=== PATIENT | male | born 1970 | race African-American/Black ===

== ENCOUNTER 2021-09-27 08:52 | Outpatient (REF) | payer OTHER, SELFPAY ==
[2021-09-27 09:59] LABS: MANUAL DIFF FLAG NO
[2021-09-27 10:01] LABS: Basophils Absolute Auto 0.1 X10*3/uL (0.0-0.2); Basophils Percent Auto 0.6 % (0-2); Eosinophils Absolute Auto 0.2 X10*3/uL (0.0-0.4); Eosinophils Percent Auto 2.6 % (0-4); Hematocrit 38.7 % (42-52); Hemoglobin 12.9 g/dl (14.0-18.0); Imm Gran Abs Auto 0.05 X10*3/uL (0.00-0.03); Imm Gran Pct Auto 0.6 % (0.0-0.4); Lymphocytes Absolute Auto 2.4 X10*3/uL (1.2-4.9); Lymphocytes Percent Auto 26.2 % (20-40); Mean Corpuscular HGB Conc 33.3 g/dl (31.0-36.0); Mean Corpuscular Hemoglobin 29.5 pg (27.0-33.0); Mean Corpuscular Volume 88.4 fL (80-98); Mean Platelet Volume 9.9 fL (9.4-12.4); Monocytes Absolute Auto 0.7 X10*3/uL (0.1-1.2); Monocytes Percent Auto 7.6 % (2-11); Neutrophils Absolute Auto 5.6 X10*3/uL (2.0-8.3); Neutrophils Percent Auto 62.4 % (45-73); Platelet Count 330 X10*3/uL (160-400); Red Blood Count 4.38 X10*6/uL (4.60-5.80); Red Cell Distribution Width 12.4 % (11.0-16.0)
[2021-09-27 10:34] LABS: Alanine Aminotransferase 32 U/L (0-40); Albumin Level 4.4 g/dL (3.5-5.0); Alkaline Phosphatase 60 U/L (39-117); Anion Gap 11 (12-20); Aspartate Amino Transferase 20 U/L (5-37); Bilirubin Total 0.6 mg/dL (0.0-1.0); Blood Urea Nitrogen 13 mg/dL (9-16); Calcium 9.4 mg/dL (8.4-10.2); Carbon Dioxide 28 mmol/L (22-29); Chloride 103 mmol/L (96-108); Cholesterol 210 mg/dL; Estimated Glomerular Filt Rate > 60; Glucose Fasting 108 mg/dL (60-99); HDL Cholesterol 41 mg/dL; LDL Cholesterol Calculated 148 mg/dl; Potassium 4.2 mmol/L (3.3-5.1); Sodium 138 mmol/L (135-145); Total Protein 7.7 g/dL (6.5-8.0); Triglycerides 107 mg/dL
[2021-09-27 10:41] LABS: Appearance Urine CLEAR; Color Urine YELLOW; Glucose Urine UA NEG (NEG); Leukocyte Esterase Urine NEG (NEG); Nitrite Urine NEG (NEG); Urine Blood NEG (NEG); Urine Ketones NEG (NEG); Urine Protein NEG (NEG-TRACE)
[2021-09-27 10:51] LABS: Thyroid Stimulating Hormone 0.38 uIU/mL (0.32-4.0)
== END 2021-09-27 08:53 | disposition home or self-care (01) ==
LOC: HO.10HDL 08:52
PROVIDERS: Visit Provider Internal Medicine
DX: Z00.00 Encounter for general adult medical examination without abnormal findings (principal); Z12.5 Encounter for screening for malignant neoplasm of prostate; R63.5 Abnormal weight gain; R35.1 Nocturia
CPT/HCPCS: 36415; 80053; 80061; 81003; 84153; 84443; 85025

== ENCOUNTER 2021-11-01 07:42 | Day surgery (SDC) | payer SELFPAY ==
[2021-10-24 09:48] VITALS: BMI 50.7
--- NOTE | 2021-10-31 09:57 | P.CONAN_ITS ---
Documented by User: Liza Ortiz NP 10/31/21 09:59 HPI - Anesthesia Eval Consult details Narrative: 51yo M for Upper Endoscopy and Colonoscopy [facility] Past Medical History Medical History (Updated 10/24/21 @ 09:47 by Elizabeth Busby RN) Arthritis Elevated cholesterol Environmental allergies GERD (gastroesophageal reflux disease) HTN (hypertension) Sleep apnea Surgical History Surgical History (Updated 10/24/21 @ 09:47 by Elizabeth Busby RN) Hx of arthroscopic knee surgery Social History Social History Are you a primary director of home care hospice to a significant other at home: No Do you presently have visiting nurse or other home services: No Patient Tobacco Use Status: Never used Tobacco Use of substances other than those prescribed or required for medical reasons: No Have you been hit, kicked, punched, or otherwise hurt by someone within the past year? If so, by whom?: No Are you DNR?: No Advance Directives: No Advance Directives Information Provided: Yes (informational brochure mailed) Advance Directives on File: No Recently lost weight without trying: No Eating poorly because of decreased appetite: No Nutrition Risks: No Nutritional Risk Poor oral hygiene: No Meds Allergies Allergy/AdvReac Type Severity Reaction Status Date / Time No Known Allergies Allergy Verified 10/24/21 09:27 Home Medications Medication Instructions Recorded Confirmed Last Taken Type albuterol sulfate 90 mcg/actuation 1 inh INHALATION Q4H PRN 10/24/21 10/24/21 Unknown History aerosol inhaler cetirizine 10 mg tablet 10 mg PO DAILY 10/24/21 10/24/21 Unknown History losartan 100 1 tab PO DAILY 10/24/21 10/24/21 Unknown History mg-hydrochlorothiazide 25 mg tablet omeprazole 20 mg capsule,delayed 1 cap PO DAILY 10/24/21 10/24/21 Unknown History release Exam Exam Date and Time: October 31, 2021 0957 Height,Weight and Vital Signs: Height 5 ft 7 in Weight 146.964 kg Pertinent Lab Results Pertinent Lab Results: Laboratory Tests 09/27/21 09/27/21 09:00 09:00 WBC 9.0 Hgb 12.9 L Hct 38.7 L Plt Count 330 Sodium 138 Potassium 4.2 Chloride 103 Carbon Dioxide 28 BUN 13 Creatinine 1.22 Assessment and Plan Assessment Anesthesia Assessment: Chart Reviewed Documented by User: Loren Zuniga MD 11/01/21 08:30 [facility] Past Medical History Medical History (Updated 10/24/21 @ 09:47 by Elizabeth Busby RN) Arthritis Elevated cholesterol Environmental allergies GERD (gastroesophageal reflux disease) HTN (hypertension) Sleep apnea Family History Family history of problems with anesthesia: No Surgical History Surgical History (Updated 10/24/21 @ 09:47 by Elizabeth Busby RN) Hx of arthroscopic knee surgery History of Problems with Anesthesia: No Social History Social History Are you a primary director of home care hospice to a significant other at home: No Do you presently have visiting nurse or other home services: No Patient Tobacco Use Status: Never used Tobacco Use of substances other than those prescribed or required for medical reasons: No Have you been hit, kicked, punched, or otherwise hurt by someone within the past year? If so, by whom?: No Are you DNR?: No Advance Directives: No Advance Directives Information Provided: Yes (informational brochure mailed) Advance Directives on File: No Recently lost weight without trying: No Eating poorly because of decreased appetite: No Nutrition Risks: No Nutritional Risk Poor oral hygiene: No Meds Allergies Allergy/AdvReac Type Severity Reaction Status Date / Time No Known Allergies Allergy Verified 10/24/21 09:27 Home Medications Medication Instructions Recorded Confirmed Last Taken Type albuterol sulfate 90 mcg/actuation 1 inh INHALATION Q4H PRN 10/24/21 10/24/21 Unknown History aerosol inhaler cetirizine 10 mg tablet 10 mg PO DAILY 10/24/21 10/24/21 Unknown History losartan 100 1 tab PO DAILY 10/24/21 10/24/21 Unknown History mg-hydrochlorothiazide 25 mg tablet omeprazole 20 mg capsule,delayed 1 cap PO DAILY 10/24/21 10/24/21 Unknown History release Exam Airway Mallampati Class: II TM Dist: >3cm Neck ROM: Full Heart: rrr Lungs: cta Assessment and Plan Assessment Anesthesia Assessment: Anesthesia Plan Discussed and Chart Reviewed Final Anesthetic Review Family History of Problems with Anesthesia: No History of Problems with Anesthesia: No NPO: Yes ASA Class: III Final Preanesthetic Review: No Changes in Pt Med Stat, Meds/Allgs Chart Reviewed and Consent Obtained/Reviewed Patient Risk: Intermediate Procedure Risk: Intermediate Anesthetic Plan Anesthetic Plan: MAC: Disposition: Standard PACU
[2021-11-01 07:57] VITALS: BP 152/80; PULSE 100; RESP 16; TEMP 36.8; O2SAT 96
[2021-11-01] MEDS: Lactated Ringers 1,000 ML 100 ML IVCONT (08:14)
--- NOTE | 2021-11-01 10:18 | P.BOP_ITS ---
Brief Operative Note Date of Service: 11/01/21 Pre-op diagnosis: GERD, Screening Post-op diagnosis: other (Hiatal hernia, Gastric polyp, Colon polyp) Procedure: EGD with biopsies, Colonoscopy to the cecum with biopsy/removal of polyp Surgeon: Faustino Carmen Anesthesia: MAC Was an Supervisor Acoustical Tile [employer] used for this Procedure?: No Estimated blood loss (mL): 2.0 Pathology: other (A. Gastric polyp B. EG Junction at 40cm C. Colon polyp at 30cm) Condition: stable Disposition: PACU
[2021-11-01 10:23] VITALS: BP 115/66; PULSE 111; RESP 12; TEMP 37.1; O2SAT 98
[2021-11-01 10:38] VITALS: BP 120/66; PULSE 108; RESP 17; TEMP 37.1; O2SAT 96
--- NOTE | 2021-11-02 02:58 | OP_ITS ---
SURGEON: Faustino Carmen MD INDICATIONS: The patient presents for evaluation of gastroesophageal reflux, colorectal cancer screening. Full consent has been obtained from him for both procedures, including risks of bleeding and perforation. PREOPERATIVE DIAGNOSIS: Gastroesophageal reflux and colorectal cancer screening. POSTOPERATIVE DIAGNOSIS: PROCEDURE PERFORMED: Esophagogastroduodenoscopy with biopsies, and colonoscopy to cecum with biopsy and removal of polyp. ESTIMATED BLOOD LOSS: COMPLICATIONS: ANESTHESIA: Monitored anesthesia care. ASSISTANTS: SPECIMENS: POSTOPERATIVE DIAGNOSES: Gastroesophageal reflux and colorectal cancer screening, small hiatal hernia, gastric polyp, colon polyp, occasional sigmoid diverticulosis, and small internal hemorrhoids. DESCRIPTION OF PROCEDURE: The patient was placed in the left lateral decubitus position. The Olympus video gastroscope was passed in the posterior oropharynx and upper esophagus under direct vision. The scope was passed slowly into the distal esophagus. The gastroesophageal junction appeared at 40 cm. There was a very minimal irregularity, but no evidence of esophagitis nor any definitive evidence of Jones's mucosa. The scope was advanced to the pylorus. The duodenum was cannulated to the descending portion. The duodenum including the bulb appeared normal without mass or ulceration. Scope was withdrawn back into the stomach. The gastric antrum and body appeared normal with good peristalsis. The scope was retroflexed visualizing the proximal stomach carefully which appeared normal, without any sign of mass or ulceration, other than some hyperplastic appearing polyps. One of these was somewhat larger and was biopsied twice. The scope was straightened and withdrawn back into the esophagus. The esophageal mucosa appeared normal. I did obtain biopsies of the EG junction at 40 cm. The scope was withdrawn from the patient. He was turned around for the colonoscopy. The digital rectal exam revealed no abnormalities. The Olympus video pediatric colonoscope was entered into the rectum and advanced easily to the cecum. Once in the cecum, I did identify normal-appearing cecal pouch with appendiceal orifice and a normal-appearing ileocecal valve. The entire cecum was well visualized and appeared normal. The scope was slowly withdrawn assessing all mucosal surfaces carefully. Preparation was excellent. At 30 cm, was an approximately 3 or 4 mm polyp, which was biopsied and completely removed with cold biopsy forceps. I did not visualize any other polyps, colitis, nor angiodysplasia. There were occasional diverticula in the sigmoid colon. In the rectum, scope was retroflexed visualizing internal hemorrhoids, but no other pathology. The rectal mucosa appeared normal. Scope was straightened out and withdrawn from the patient. He tolerated the procedure well and was returned to the recovery area in stable condition. IMPRESSION: 1. Small hiatal hernia. 2. Gastric polyp. 3. Colon polyp. 4. Occasional diverticulosis. 5. Internal hemorrhoids. PLAN: The results of the biopsies will be checked. He has been advised to continue his daily omeprazole for relief of his reflux. If there happens to be Jones's esophagus without dysplasia, I would recommend a repeat upper endoscopy in 3 years for further surveillance in that regard. If the colon polyp is a tubular adenoma, I would recommend a repeat colonoscopy in 5 years. If it is only hyperplastic, I would recommend a followup colonoscopy in 10 years. He will otherwise see me as needed. He was advised not to use any aspirin and NSAIDs for 1 week. MD KERI Dasilva/AUNG / [id number] MTDD
== END 2021-11-01 11:34 | disposition home or self-care (01) ==
PROVIDERS: PCP Internal Medicine; Visit Provider Internal Medicine
PROC: (CPT 45380; principal; 2021-11-01 08:40)
DX: Z12.11 Encounter for screening for malignant neoplasm of colon (principal); K63.5 Polyp of colon; K57.30 Diverticulosis of large intestine without perforation or abscess without bleeding; K64.8 Other hemorrhoids; I10 Essential (primary) hypertension; K21.9 Gastro-esophageal reflux disease without esophagitis; K31.7 Polyp of stomach and duodenum; K44.9 Diaphragmatic hernia without obstruction or gangrene; G47.33 Obstructive sleep apnea (adult) (pediatric); E78.00 Pure hypercholesterolemia, unspecified; Z79.899 Other long term (current) drug therapy
CPT/HCPCS: 45380; 88305; 88342; J2250

== ENCOUNTER 2025-05-20 11:51 | Outpatient (AMB) | payer OTHER, SELFPAY ==
--- NOTE | 2025-05-20 10:49 | A.OFFPC_ITS ---
Vital Signs 05/20/25 11:52 Height 5 ft 10 in Weight 334 lb BMI 47.9 BP 124/80 Blood Pressure Location Lt brachial Position Sitting Pulse 90 Pulse Source Pulse Oximeter Temp 98.2 F Temp Source Axillary Pulse Oximetry (%) 98 Oxygen Delivery Method Room Air Intake Visit Reasons: Routine Paraprofessional Aide Teacher Required: No Accompanied by: Self / Same As Patient Allergies No Known Allergies Allergy (Verified 05/20/25 10:50) Tobacco use date assessed: 05/20/25 Dental Screening Dental Screen Date: 05/20/25 Did you have a dental visit in the last 12 months?: Yes Did you have a dental problem in the last 6 months where you did not have access to dental care?: No HPI HPI Comments History of Present Illness Details The patient is a 54 year old male with a past medical history of hypertension, hyperlipidemia, JOSELITO, GERD, asthma, allergies presenting for follow up CV: On losartan-hctz. BP is well controlled. No chest pain, exertional dyspnea. Has not lost weight with decreasing calories trying to exercise. JOSELITO-Not on cpap. Sleep test was in 2009. No excessive daytime fatigue Colonoscopy 2020-Dr Carmen. One hyperplastic polyp. Presume 10 years ROS CONSTITUTIONAL: Denies weight loss, fever and chills. HEENT: Denies changes in vision and hearing. RESPIRATORY: Denies SOB and cough. CV: Denies palpitations and CP GI: Denies abdominal pain, nausea, vomiting and diarrhea. : Denies dysuria and urinary frequency. MSK: Denies new myalgia and joint pain. SKIN: Denies rash and pruritus. NEUROLOGICAL: Denies headache PSYCHIATRIC: Denies recent changes in mood. PHYSICAL EXAM: GENERAL: Alert and oriented x 3. NAD EYES: EOMI. Anicteric. HENT: Moist mucous membranes. No scleral icterus. No cervical lymphadenopathy. LUNGS: Clear to auscultation bilaterally. CARDIOVASCULAR: Regular rate and rhythm. No murmur. No JVD. ABDOMEN: Soft, non-tender +bs EXTREMITIES: No edema. Non-tender. SKIN: No rashes or lesions. Warm. NEUROLOGIC: No focal neurological deficits. CN II-XII grossly intact PSYCHIATRIC: Cooperative. Appropriate mood and affect [facility] Medical History Sleep apnea Arthritis Environmental allergies Elevated cholesterol GERD (gastroesophageal reflux disease) HTN (hypertension) Surgical History History of colonoscopy (~11/02/21) Hx of arthroscopic knee surgery Family History Mother No problems noted. Father No problems noted. Social History Housing: House Are you a primary nonfarm animal caretaker to a significant other at home: No Do you presently have visiting nurse or other home services: No Patient Tobacco Use Status: Never used Tobacco e-Cigarette/Vaping Use: Never Used service: No Current occupational status: employed Cognitive needs: No Hearing needs: No Vision needs: No Questionnaire PHQ-9 Over the last 2 weeks, how often have you been bothered by any of the following problems? 1. Little interest or pleasure in doing things: not at all 2. Feeling down, depressed, or hopeless: not at all 3. Trouble falling or staying asleep, or sleeping too much: not at all 4. Feeling tired or having little energy: not at all 5. Poor appetite or overeating: not at all 6. Feeling bad about yourself - or that you are a failure or have let yourself or your family down: not at all 7. Trouble concentrating on things, such as reading the newspaper or watching television: not at all 8. Moving or speaking so slowly that other people could have noticed. Or the opposite - being so fidgety or restless that you have been moving around a lot more than usual: not at all 9. Thoughts that you would be better off or of hurting yourself in some way: not at all Total score: 0 Depression Screening Interpretation: Negative Depression Screening Done: Yes 94381 - PHQ-9 Billing: Yes Source: Developed by Drs. Faustino Macedo, Shanna Cohen, Chito Turner and colleagues, with an educational carmel from [employer]. Thrive Questionnaire Date Thrive assessed: 05/20/25 I am a: Patient Within the past 12 months, did the food you bought not last and you didn't have the money to get more?: Never true Within the past 12 months, did you worry whether your food would run out before you got money to buy more?: Never true Do you have trouble paying for medicines?: No Do you have trouble getting transportation to medical appointments?: No Do you have trouble paying your heating and electricity bill?: No Do you have trouble taking care of your child, family member or friend?: No Do you have trouble with day-to-day activities such as bathing, preparing meals, shopping, managing finances, etc.?: No Are you currently unemployed and looking for a job?: No Are you interested in more education?: No THRIVE Score: 0 AUDIT C Alcohol Use Questionnaire (AUDIT-C) 1. How often do you have a drink containing alcohol?: Monthly or less 2. How many drinks containing alcohol do you have on a typical day when you are drinking?: 1 or 2 3. How often do you have six or more drinks on one occasion?: Less than monthly Total Score: 2 MYRNA-7 AMB Questionnaire MYRNA-7 Date MYRNA - 7 assessed: 05/20/25 Feeling nervous, anxious, or on edge: 0 = Not at all Not being able to stop or control worryin = Not at all Worrying too much about different things: 0 = Not at all Trouble relaxin = Not at all Being so restless that it is hard to sit still: 0 = Not at all Becoming easily annoyed or irritable: 0 = Not at all Feeling afraid as if something awful might happen: 0 = Not at all Total MYRNA-7 score (0-4 normal; 5-9 mild; 10-14 moderate; 15-21 severe): 0 Source: Developed by Drs. Faustino Macedo, Shanna Cohen, Chito Turner and colleagues, with an educational carmel from [employer]. Physical exam (Primary Care) Tobacco/Smoking Status: Tobacco use Status Tobacco use date assessed 05/20/25 05/20/25 10:55 Patient Tobacco Use Status Never used Tobacco 05/20/25 10:55 e-Cigarette/Vaping Use Never Used 05/20/25 10:55 PHQ-9: PHQ-9 Score PHQ-9: Total score 0 05/20/25 10:55 Depression Screening Interpretation: Negative Thrive Assessment: Date of Thrive Assessment Date Thrive assessed 05/20/25 05/20/25 10:55 Coding Level of Care Code New Pt Level 4 (03128) Complex EM visit Add On G2211 Diagnoses Primary hypertension I10 Hypertension type: primary hypertension Obstructive sleep apnea syndrome G47.33 Sleep apnea type: obstructive Class 3 severe obesity due to excess calories with serious comorbidity and body mass index (BMI) of 45.0 to 49.9 in adult E66.813; Z68.42 Obesity type: due to excess calories Obesity classification: adult class 3 (BMI >= 40) Body mass index: BMI 45.0-49.9 Serious obesity comorbidity presence: with serious comorbidity Additional Codes PHQ-9 - 89498 - PHQ-9 Billing: Yes ([id number]) Assessment & Plan Assessment & Plan (1) HTN (hypertension): Code(s): I10 - Essential (primary) hypertension Category: Medical Qualifiers: Hypertension type: primary hypertension Qualified Code(s): I10 - Essential (primary) hypertension (2) Sleep apnea: Comment: no CPAP Code(s): G47.30 - Sleep apnea, unspecified Category: Medical Qualifiers: Sleep apnea type: obstructive Qualified Code(s): G47.33 - Obstructive sleep apnea (adult) (pediatric) (3) Obesity: Code(s): E66.9 - Obesity, unspecified Category: Medical Qualifiers: Obesity type: due to excess calories Obesity classification: adult class 3 (BMI >= 40) Body mass index: BMI 45.0-49.9 Serious obesity comorbidity presence: with serious comorbidity Qualified Code(s): E66.813 - Obesity, class 3; Z68.42 - Body mass index [BMI] 45.0-49.9, adult Plan 54 year old with obesity, htn, sleep apnea to establish care past medical, surgical, social reviewed Morbidly obese-failed dietary/lifestyle changes. Zepbound ordered HTN is well controlled on current medicaitons. Labs are ordered Follow up q 6 months Orders: Orders Comprehensive Met. Panel Today E66.9 - Obesity, unspecified, I10 - Essential (primary) hypertension, Z12.5 - Encounter for screening for malignant neoplasm of prostate, Z13.228 - Encounter for screening for other metabolic disorders LDL Cholesterol Direct Today E66.9 - Obesity, unspecified, I10 - Essential (primary) hypertension, Z12.5 - Encounter for screening for malignant neoplasm of prostate, Z13.228 - Encounter for screening for other metabolic disorders Complete Blood Count Auto Diff Today E66.9 - Obesity, unspecified, I10 - Essential (primary) hypertension, Z12.5 - Encounter for screening for malignant neoplasm of prostate, Z13.228 - Encounter for screening for other metabolic disorders Lipid Panel Today E66.9 - Obesity, unspecified, I10 - Essential (primary) hypertension, Z12.5 - Encounter for screening for malignant neoplasm of prostate, Z13.228 - Encounter for screening for other metabolic disorders Hemoglobin A1c Today E66.9 - Obesity, unspecified, I10 - Essential (primary) hypertension, Z12.5 - Encounter for screening for malignant neoplasm of prostate, Z13.228 - Encounter for screening for other metabolic disorders Prostate Specific Antigen Today E66.9 - Obesity, unspecified, I10 - Essential (primary) hypertension, Z12.5 - Encounter for screening for malignant neoplasm of prostate, Z13.228 - Encounter for screening for other metabolic disorders Medications: New Zepbound (tirzepatide (weight loss)) for 4 weeks 2.5 mg (0.5 mL) subcut QWEEK 2 mL 1RF NS E66.9 - Obesity, unspecified, G47.30 - Sleep apnea, unspecified albuterol sulfate 90 mcg/actuation (Ventolin HFA) 2 puffs inhalation Q6H PRN 8.5 grams 3RF shortness of breath or wheezing losartan-hydrochlorothiazide 100-25 mg 1 tab PO DAILY 90 tabs 3RF Refilled doxycycline hyclate 100 mg PO Q12H 180 tabs 3RF Discontinued mupirocin 2% Discontinued Reason: Patient no longer taking 1 appl topical BID PRN 22 grams 0RF folliculitis
[2025-05-20 11:52] VITALS: BP 124/80; PULSE 90; TEMP 36.8; O2SAT 98; BMI 47.9
--- OUTSIDE RECORDS SUMMARY | 2025-05-20 13:16 | XMS_ITS | Clinical Summary ---
Author Organization [facility] Address [address] [place] [address] Care Team Providers Care Director Medicare Sales Name Role Phone Christopher Castro MD Primary Care Provider [phone] Allergies No known active allergies Medications losartan-hydroCH LOROthiazide (HYZAAR) 100-25 MG per tablet Oral for 90 Acti ve OMEprazole (PriLOSEC) 20 MG capsule Take by mouth daily. 3 Active ciprofloxacin-de xamethasone (CIPRODEX) 0.3-0.1 % otic suspensionIndica tions:Acute otitis externa of left ear, unspecified type Administer 4 drops into the left ear 2 (two) times a day. 7.5 mL 3 Active Active Problems No known active problems Social History Tobacco Use Types Packs/Day Years Used Date Smoking Tobacco: Never Assessed Sex and Gender Information Value Date Recorded Sex Assigned at Not on file Legal Sex Male 5:40 PM EDT Gender Identity Not on file Sexual Orientation Not on file Last Filed Vital Signs Vital Sign Reading Time Taken Comments Blood Pressure 165/107 08/11/2023 6:14 PM EDT Pulse 100 08/11/2023 6:14 PM EDT Temperature 36.7 C (98 F) 08/11/2023 6:14 PM EDT Respiratory Rate - - Oxygen Saturation 97% 08/11/2023 6:14 PM EDT Inhaled Oxygen Concentration - - Weight - - Height - - Body Mass Index - - Plan of Treatment Health Maintenance Due Date Last Done Comments Hepatitis C Virus Screening 1971 HIV Screening 1984 DTaP/Tdap/Td Vaccines (1 - Tdap) 1990 Hepatitis B Vaccines (1 of 3 - 19+ 3-dose series) 08/1990 Colonoscopy 2016 Pneumococcal Vaccines 50+ (1 of 1 - PCV) 2021 Zoster (Shingles) Vaccine (1 of 2) 2021 COVID-19 Vaccine (1 - 2023- season) 2024 Influenza Vaccine 07/02/2025 Care Teams Director Medicare Sales Relationship Specialty Start Date End Date Christopher Castro MD [address] [place] [address] [place] [address] PCP - General 08/11/23
== END 2025-05-20 13:17 | disposition home or self-care (01) ==
PROVIDERS: PCP Physician Assistant; Visit Provider Internal Medicine
DX: I10 Essential (primary) hypertension (principal); G47.33 Obstructive sleep apnea (adult) (pediatric); E66.813 Obesity, class 3; Z68.42 Body mass index [BMI] 45.0-49.9, adult

== ENCOUNTER → 2025-05-20 11:51 | Outpatient (BNVA) | payer SELFPAY | PROVIDERS: PCP Physician Assistant; Visit Provider Internal Medicine ==

== ENCOUNTER 2025-05-20 12:15 | Outpatient (REF) | payer OTHER, SELFPAY ==
[2025-05-20 13:07] LABS: MANUAL DIFF FLAG NO
[2025-05-20 13:10] LABS: Basophils Absolute Auto 0.1 X10*3/uL (0.0-0.2); Basophils Percent Auto 0.8 % (0-2); Eosinophils Absolute Auto 0.1 X10*3/uL (0.0-0.4); Eosinophils Percent Auto 0.7 % (0-4); Hematocrit 37.9 % (42.0-52.0); Imm Gran Abs Auto 0.03 X10*3/uL (0.00-0.03); Imm Gran Pct Auto 0.3 % (0.0-0.4); Lymphocytes Absolute Auto 2.9 X10*3/uL (1.2-4.9); Lymphocytes Percent Auto 32.2 % (20-40); Mean Corpuscular HGB Conc 34.3 g/dl (31.0-36.0); Mean Corpuscular Hemoglobin 29.8 pg (27.0-33.0); Mean Corpuscular Volume 86.9 fL (80.0-98.0); Mean Platelet Volume 9.9 fL (9.4-12.4); Monocytes Absolute Auto 0.7 X10*3/uL (0.1-1.2); Monocytes Percent Auto 7.7 % (2-11); Neutrophils Absolute Auto 5.2 x10*3/uL (2.0-8.3); Neutrophils Percent Auto 58.3 % (45-73); Platelet Count 302 X10*3/uL (160-400); Red Blood Count 4.36 X10*6/uL (4.60-5.80); Red Cell Distribution Width 12.7 % (11.0-16.0); White Blood Count 8.9 X10*3/uL (4.8-10.8)
[2025-05-20 13:18] LABS: Estimated Average Glucose 134 mg/dL; Hemoglobin A1c % 6.3 % (<6.0)
[2025-05-20 13:25] LABS: Albumin Level 4.5 g/dL (3.5-5.0); Alkaline Phosphatase 71 U/L (39-117); Anion Gap 11 (12-20); Aspartate Amino Transferase 28 U/L (5-37); Bilirubin Total 0.8 mg/dL (0.0-1.0); Blood Urea Nitrogen 12 mg/dL (9-16); Calcium 9.7 mg/dL (8.4-10.2); Carbon Dioxide 30 mmol/L (22-29); Chloride 106 mmol/L (96-108); Cholesterol 220 mg/dL (<200); Estimated Glomerular Filt Rate > 60; Glucose Random 110 mg/dL (60-115); HDL Cholesterol 43 mg/dL (>40); LDL Cholesterol Calculated 153 mg/dL (<100); Potassium 3.6 mmol/L (3.3-5.1); Sodium 143 mmol/L (135-145); Triglycerides 122 mg/dL (<150)
[2025-05-20 13:42] LABS: Prostate Specific Antigen 0.84 ng/mL (<0.05-4.0)
[2025-05-20 14:01] LABS: Alanine Aminotransferase 41 U/L (0-40)
[2025-05-21 18:53] LABS: LDL Cholesterol Direct 161 mg/dL (<100)
== END 2025-05-20 12:16 | disposition home or self-care (01) ==
LOC: HO.10HDL 12:15
PROVIDERS: Visit Provider Internal Medicine
DX: I10 Essential (primary) hypertension (principal); E78.5 Hyperlipidemia, unspecified; K21.9 Gastro-esophageal reflux disease without esophagitis; J45.909 Unspecified asthma, uncomplicated; G47.33 Obstructive sleep apnea (adult) (pediatric); E66.813 Obesity, class 3; Z68.42 Body mass index [BMI] 45.0-49.9, adult; Z13.228 Encounter for screening for other metabolic disorders; Z12.5 Encounter for screening for malignant neoplasm of prostate
CPT/HCPCS: 36415; 80053; 80061; 83036; 83721; 84153; 85025; 96127; 99202